=== PATIENT | male | born 1970 | race Caucasian/White ===

== ENCOUNTER 2018-08-06 07:31 | Emergency (ER) | payer BC ==
[2018-08-06] MEDS ORDERED: ACETAMINOPHEN 325 MG TABLET PO ONE (08:59)
[2018-08-06] MEDS ORDERED: IBUPROFEN 600 MG TABLET PO ONE (08:59)
--- NOTE | 2018-08-06 09:03 | ER Document Report ---
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 Patient states ongoing since this morning. Patient states he did have recent surgery approximately 3 months ago and is concerned that he may have a blood clot. Patient otherwise is morbidly obese however denies any trauma toThe left leg. Patient is resting comfortably upon my evaluation denies any fevers chills nausea vomiting diarrhea. - Related Data Allergies/Adverse Reactions: No Known Allergies Allergy (Unverified 08/06/18 07:33) Past Medical History - Social History Smoking Status: Never Smoker Chew tobacco use (# tins/day): No Frequency of alcohol use: None Drug Abuse: None Family History: Reviewed & Not Pertinent Patient has suicidal ideation: No Patient has homicidal ideation: No - Past Medical History Cardiac Medical History: Reports: Hx Hypertension Renal/ Medical History: Denies: Hx Peritoneal Dialysis Past Surgical History: Reports: Hx Cholecystectomy, Hx Orthopedic Surgery Review of Systems - Review of Systems Constitutional: No symptoms reported EENT: No symptoms reported Cardiovascular: No symptoms reported Respiratory: No symptoms reported Gastrointestinal: No symptoms reported Genitourinary: No symptoms reported Male Genitourinary: No symptoms reported Musculoskeletal: Other - Left leg pain Skin: No symptoms reported Hematologic/Lymphatic: No symptoms reported Neurological/Psychological: No symptoms reported -: Yes All other systems reviewed and negative Physical Exam - Vital signs Vitals: Temp Pulse Resp BP Pulse Ox 97.4 F 75 16 140/86 H 98 08/06/18 07:36 08/06/18 07:36 08/06/18 07:36 08/06/18 07:36 08/06/18 07:36 Interpretation: Normal - General General appearance: Appears well, Alert - HEENT Head: Normocephalic, Atraumatic Eyes: Normal Pupils: PERRL - Respiratory Respiratory status: No respiratory distress Chest status: Nontender Breath sounds: Normal Chest palpation: Normal - Cardiovascular Rhythm: Regular Heart sounds: Normal auscultation Murmur: No - Abdominal Inspection: Normal Distension: No distension Bowel sounds: Normal Tenderness: Nontender Organomegaly: No organomegaly - Back Back: Normal, Nontender - Extremities General upper extremity: Normal inspection, Nontender, Normal color, Normal ROM, Normal temperature General lower extremity: Nontender, Normal color, Normal ROM, Normal temperature, Normal weight bearing. No: Normal inspection - Minimal size difference with left leg being greater than the right no palpable cords trace pitting edema bilaterally Slight redness on the medial portion of the MtP joint on the left side with slight warmth consistent with gout, Armida's sign - Neurological Neuro grossly intact: Yes Cognition: Normal Orientation: AAOx4 Aba Coma Scale Eye Opening: Spontaneous Aba Coma Scale Verbal: Oriented [place] Coma Scale Motor: Obeys Commands [place] Coma Scale Total: 15 Speech: Normal Motor strength normal: LUE, RUE, LLE, RLE Sensory: Normal - Psychological Associated symptoms: Normal affect, Normal mood - Skin Skin Temperature: Warm Skin Moisture: Dry Skin Color: Normal Course - Re-evaluation Re-evalutation: 08/06/18 14:59 Ultrasounds negative for DVT. Patient does have a red area of the first and TP joint on the left foot that looks consistent with a possible gout flare. Patient states he does have a history of gout in the past. Did recommend Tylenol Motrin for therapy elevation of the leg and Ultram for severe pain. - Vital Signs Vital signs: Temp Pulse Resp BP Pulse Ox 97.6 F 76 16 136/86 H 98 08/06/18 09:17 08/06/18 09:17 08/06/18 09:17 08/06/18 09:17 08/06/18 09:17 Discharge - Discharge Clinical Impression: Left leg swelling, Left leg pain Gout Qualifiers: Gout site: foot Gout etiology: unspecified cause Chronicity: acute Laterality: left Qualified Code(s): M10.9 - Gout, unspecified Condition: Good Disposition: HOME, SELF-CARE Instructions: Gout ([facility]), Gout Diet ([facility]), Leg Pain Nonspecific ([facility]) Additional Instructions: Ultrasound of the leg does not revealing signs of a deep vein thrombosis. Examination of her left foot does show signs of the beginning of an acute gout flare. I would recommend taking anti-inflammatory medication along with Tylenol as prescribed. May take the Ultram for severe pain elevate your leg at night would recommend following up with your primary care physician or one physicians provided return to the ER symptoms worsen. Prescriptions: Ibuprofen [Motrin 600 mg Tablet] 600 mg PO Q8HP PRN #21 tablet PRN Reason: Tramadol HCl [Ultram 50 mg Tablet] 50 mg PO ASDIR PRN #10 tablet PRN Reason: Forms: Return to Work
--- NOTE | 2018-08-06 09:09 | RADIOLOGY REPORT (SQ) ---
EXAM DESCRIPTION: VENOUS UNILATERAL LOWER COMPLETED DATE/TIME: 08/06/2018 9:01 am REASON FOR STUDY: pain left leg COMPARISON: None. TECHNIQUE: Dynamic and static wilson scale and color images acquired of the left leg venous system. Se lected spectral images acquired with additional compression and augmentation maneuvers. The contralat eral common femoral vein and saphenofemoral junction were also imaged. Images stored on PACS. LIMITATIONS: None. FINDINGS: COMMON FEMORAL: Normal phasicity, compression and augmentation. No visualized echogenic ma terial on wilson scale. No defects on color images. FEMORAL: Normal compression and augmentation. No visualized echogenic material on wilson scale. No defe cts on color images. POPLITEAL: Normal compression, augmentation. No visualized echogenic material on wilson scale. No defec ts on color images. CALF VESSELS: Normal compression, augmentation. No visualized echogenic material on wilson scale. No de fects on color images. GSV and SSV: Normal compression, augmentation. No visualized echogenic material on wilson scale. No def ects on color images. ANY DEEP VENOUS INSUFFICIENCY: Not evaluated. ANY EVIDENCE OF POPLITEAL CYST: No. OTHER: No other significant finding. CONTRALATERAL COMMON FEMORAL VEIN AND SAPHENOFEMORAL JUNCTION: Normal phasicity, compression and augmentation. No visualized echogenic material on wilson scale. No de fects on color images. IMPRESSION: NO EVIDENCE OF DVT OR SVT IN THE LEFT LEG. TECHNICAL DOCUMENTATION: JOB ID: [id number] [employer]- All Rights Reserved Reading location - IP/workstation name: [email or web address]
[2018-08-06 09:20] VITALS: BP 136/86
== END 2018-08-06 09:20 | disposition home or self-care (01) ==
LOC: ER 07:31
DX: M10.9 Gout, unspecified (principal); M79.605 Pain in left leg; R60.0 Localized edema; E66.01 Morbid (severe) obesity due to excess calories; I10 Essential (primary) hypertension; Z98.890 Other specified postprocedural states
CPT/HCPCS: 93971; 99283